=== PATIENT | female | born 1990 ===

== ENCOUNTER 2017-09-27 19:48 | Emergency (ER) | payer SELFPAY ==
[2017-09-27 20:05] VITALS: BP 136/77; PULSE 86; RESP 16; TEMP 97.9; O2SAT 99
[2017-09-27 21:17] LABS: BASO # 0.1 K/uL (0.0-0.2); BASO % 0.5 % (0.0-2.0); EOS # 0.4 K/uL (0.0-0.7); HEMATOCRIT 39.6 % (34.0-47.0); LYMPH # 3.9 K/uL (1.0-4.3); LYMPH % 27.7 % (20.0-40.0); MEAN CELL VOLUME 76.3 fl (81.0-99.0); MEAN CORPUSCULAR HEMOGLOBIN 24.2 pg (27.0-31.0); MEAN CORPUSCULAR HGB CONC 31.7 g/dL (33.0-37.0); MONO # 1.6 K/uL (0.0-0.8); MONO % 11.3 % (0.0-10.0); NEUT # 8.1 K/uL (1.8-7.0); NEUT % 57.5 % (50.0-75.0); NRBC % 0.1 % (0.0-0.0); RED CELL DISTRIBUTION WIDTH 15.3 % (11.5-14.5); WHITE BLOOD COUNT 14.1 K/uL (4.8-10.8)
--- NOTE | 2017-09-27 22:17 | ED PDOC ---
HPI: Abdomen Time Seen by Provider: 09/27/17 20:21 Chief Complaint (Nursing): Abdominal Pain Chief Complaint (Provider): Abdominal Pain History Per: Patient History/Exam Limitations: no limitations Onset/Duration Of Symptoms: Days (x3) Current Symptoms Are (Timing): Still Present Additional Complaint(s): 27 year old female who presents to the emergency department with a complaint of lower abdominal pain associated with nausea and right breast leakage ongoing for 3 days. Denied any vomiting, diarrhea, bloody urine, difficulty urinating, vaginal bleeding or discharge. Patient stated her last menstrual period was last month and had taken a test at home with negative results last week. PMD: none provided Past Medical History Reviewed: Historical Data, Nursing Documentation, Vital Signs Vital Signs: Last Vital Signs Temp 97.9 F 09/27/17 20:03 Pulse 86 09/27/17 20:03 Resp 16 09/27/17 20:03 BP 136/77 09/27/17 20:03 Pulse Ox 99 09/27/17 22:23 - Medical History PMH: No Chronic Diseases - Surgical History Surgical History: No Surg Hx - Family History Family History: States: Unknown Family Hx - Allergies Allergies/Adverse Reactions: Allergies Allergy/AdvReac Type Severity Reaction Status Date / Time acetaminophen Allergy RASH Verified 09/27/17 20:06 [From Tylenol-Codeine #3] aspirin Allergy RASH Verified 09/27/17 20:05 codeine Allergy RASH Verified 09/27/17 20:06 [From Tylenol-Codeine #3] Review of Systems ROS Statement: Except As Marked, All Systems Reviewed And Found Negative Cardiovascular: Positive for: Other (right breast leak) Gastrointestinal: Positive for: Nausea, Abdominal Pain. Negative for: Vomiting , Diarrhea Genitourinary Female: Negative for: Dysuria, Hematuria, Vaginal Discharge, Vaginal Bleeding Physical Exam - Reviewed Nursing Documentation Reviewed: Yes Vital Signs Reviewed: Yes - Physical Exam Appears: Positive for: Well, Non-toxic, No Acute Distress Head Exam: Positive for: ATRAUMATIC, NORMAL INSPECTION, NORMOCEPHALIC ENT: Positive for: Normal ENT Inspection Neck: Positive for: Normal Cardiovascular/Chest: Positive for: Regular Rate, Rhythm, Chest Non Tender, Other (BREAST EXAM (patient scheduler Kevin): scant clear discharge from L nipple, no erythema, no edema, no TTP, no obvious mass, no fluctuance, no peau d'orange, no dimpling, no lesions) Respiratory: Positive for: Normal Breath Sounds. Negative for: Decreased Breath Sounds, Respiratory Distress Gastrointestinal/Abdominal: Positive for: Tenderness (mild suprapubic). Negative for: Normal Exam, Guarding, Rebound Neurologic/Psych: Positive for: Alert, Oriented - Laboratory Results Result Diagrams: 09/27/17 21:12 09/27/17 22:00 - ECG O2 Sat by Pulse Oximetry: 99 (RA) Pulse Ox Interpretation: Normal Medical Decision Making Medical Decision Making: Initial Impression: Abdominal pain Initial Plan: * Beta-HCG * CMP * Urine * Urine dipstick * CBC * US pelvis/transvag Scribe Attestation: Documented by Catherine Stafford, acting as a scribe for Farida Ko MD. Provider Scribe Attestation: All medical record entries made by the Scribe were at my direction and personally dictated by me. I have reviewed the chart and agree that the record accurately reflects my personal performance of the history, physical exam, medical decision making, and the department course for this patient. I have also personally directed, reviewed, and agree with the discharge instructions and disposition. Disposition - Clinical Impression Clinical Impression: Pelvic pain, Nipple discharge - Disposition Referrals: [facility] [Outside] Condition: STABLE Instructions: Breast Self Exam for Women (ED), Pelvic Pain in Women (ED) Forms: [employer] (Burkinan) Print Language: INDONESIAN
[2017-09-27 22:28] LABS: ALB/GLOB RATIO 1.2 (1.0-2.1); ALKALINE PHOSPHATASE 89 U/L (38-126); ALT/SGPT 32 U/L (9-52); AST/SGOT 20 U/L (14-36); BILIRUBIN,TOTAL 0.2 mg/dl (0.2-1.3); BLOOD UREA NITROGEN 12 mg/dl (7-17); CALCIUM 9.2 mg/dL (8.4-10.2); CARBON DIOXIDE 26 mmol/L (22-30); CHLORIDE 104 mmol/L (98-107); GFR AFRICAN-AMERICAN > 60; GLUCOSE,RANDOM 73 mg/dL (65-105); POTASSIUM 4.1 MMOL/L (3.6-5.0); SODIUM 140 mmol/l (132-148)
--- NOTE | 2017-09-28 08:29 | US ---
PROCEDURE: HISTORY: Suprapubic pain LMP 09/14/2017. 27-year-old female COMPARISON: None TECHNIQUE: Transabdominal and transvaginal technique FINDINGS: Anteverted uterus measuring 7.5 x 3.1 x 3.8 cm. No uterine masses. Unremarkable endometrium at 7 mm. Normal appearing cervix. No free fluid in the cul-de-sac. Right ovary: 3.0 x 2.0 x 2.9 cm. Normal Doppler flow. The 1.9 x 1.6 x 1.6 cm small cyst here is most consistent with a dominant right follicular cyst in this 27-year-old female. Left ovary 2.0 x 1.1 x 1.5 cm. Normal Doppler flow. Smaller physiologic appearing follicles. IMPRESSION: Dominant right ovarian follicular cyst. Otherwise unremarkable. Preliminary report provided by Kelsey caicedo -concordant with this report
== END 2017-09-28 00:07 | disposition home or self-care (01) ==
LOC: H.ER 19:48
DX: R10.2 Pelvic and perineal pain (principal); N64.52 Nipple discharge